=== PATIENT | male | born 1965 | race Caucasian/White ===

== ENCOUNTER 2018-07-27 08:17 | Inpatient (IN) | payer BC ==
[~2018-07-27] VITALS: Ht 177.8 cm; Wt 95.2 kg
[2018-07-27] MEDS ORDERED: ESOM20 PO (08:50)
[2018-07-27] MEDS ORDERED: CLON1 PO (08:50)
[2018-07-27] MEDS ORDERED: ESCI20 PO (08:50)
[2018-07-27] MEDS ORDERED: ZOLP10 PO (08:50)
[2018-07-27 08:57] LABS: BASOPHILS ABSOLUTE AUTO 0.03 K/mm3 (0.00-0.23); BASOPHILS PERCENT AUTO 0 % (0-2); EOSINOPHILS ABSOLUTE AUTO 0.02 K/mm3 (0.00-0.68); EOSINOPHILS PERCENT AUTO 0 % (0-6); Hematocrit 45.6 % (37.0-53.0); Hemoglobin 15.6 g/dL (13.5-17.5); IMMATURE GRAN ABSOLUTE AUTO 0.05 K/mm3 (0.00-0.10); IMMATURE GRAN PERCENT AUTO 0 % (0-1); LYMPHOCYTES ABSOLUTE AUTO 1.29 K/mm3 (0.84-5.20); LYMPHOCYTES PERCENT AUTO 11 % (21-46); MONOCYTES ABSOLUTE AUTO 1.03 K/mm3 (0.16-1.47); MONOCYTES PERCENT AUTO 9 % (4-13); Mean Corpuscular HGB 38.3 pg (26.0-34.0); Mean Corpuscular HGB Conc 34.2 g/dL (31.5-36.5); Mean Corpuscular Volume 112 fL (80-100); Mean Platelet Volume 8.8 fL (9.1-12.4); NEUTROPHILS ABSOLUTE AUTO 8.85 K/mm3 (1.96-9.15); NEUTROPHILS PERCENT AUTO 79 % (41-73); Platelet Count 291 K/mm3 (150-400); RDW Coefficient Variation 13.2 % (11.7-14.2); RDW Standard Deviation 54.9 fL (35.1-46.3); Red Blood Cell Count 4.07 M/mm3 (4.30-5.90); White Blood Cell Count 11.27 K/mm3 (4.00-11.30)
[2018-07-27 09:50] LABS: Alanine Aminotransfer (ALT/SGP 31 U/L (12-78); Albumin, Blood 3.3 g/dL (3.4-5.0); Albumin/Globulin Ratio 0.9 (0.8-1.8); Alk Phos 140 U/L (50-136); Anion Gap 5 mmol/L (6-16); Aspartate Aminotrans (AST/SGOT 16 U/L (12-37); Blood Urea Nitrogen 8 mg/dL (8-24); Bun/Creatinine Ratio 9.1 (12.0-20.0); CO2, Blood 28 mmol/L (21-32); Calcium, Blood 8.9 mg/dL (8.5-10.1); Chloride, Blood 110 mmol/L (98-108); Creatinine, Blood 0.88 mg/dL (0.60-1.20); Globulin, Blood 3.5 g/dL (2.2-4.0); Glomerular Filtration Rate >60 (60-); Glucose, Blood 98 mg/dL (70-99); Potassium, Blood 3.9 mmol/L (3.5-5.5); Sodium, Blood 143 mmol/L (136-145); Total Protein, Blood 6.8 g/dL (6.4-8.2); Troponin I <0.015 ng/mL (0.000-0.040)
--- NOTE | 2018-07-27 15:34 | NUR ---
PATIENT GOT UP TO USE THE RESTROOM, WHEN HE HAD MOVED HE SAT BACK DOWN AND CALLED FOR THE AID. THE AID CALLED FOR MYSELF AND WE GOT A SET OF VITALS. PATIENT COMPLAINED THAT HE COULD NOT BREATHE AND STATED THAT HIS CHEST HURT. GAVE THE PAIN RATING A 8/10 ON HIS RIGHT SIDED CHEST. PATIENT'S VITALS WERE PLACED IN THE COMPUTER WITH BP OF 123/73, PULSE OF 94, AND RESPIRATION RATE OF 32. CALLED DR. CEDENO AND EXPRESSED MY CONCERN WELL THE PATIENT'S CURRENT VITALS. SHE PLACED NEW ORDERS INCLUDING THE NEBULIZER TREATMENT AND REQUESTED THE PATIENT HAVE A DOSE OF KLONOPIN. PATIENT WAS ALSO GIVEN A DOSE OF TYLENOL RELATED TO HIS SPIKED TEMPERATURE FROM 96.9 TO 100.3. THE PATIENT WILL HAVE A SECOND SET OF VITALS DONE IN 15 MINUTES. SITTING WITH THE PATIENT. ASKED FOR THE DOCTOR TO ASSESS SHE STATED SHE WOULD BE WITH THE PATIENT WHEN AVAILABLE.
--- NOTE | 2018-07-27 16:15 | NUR ---
put another call out to dr. fuller about the patient's change of condition. patient does not look bad enough to call a rapid response, patient's breathing is starting to slow down but currently the patient is shaking and noting that he is cold. his temperature is coming down at this time post dose of tylenol.
--- NOTE | 2018-07-27 16:44 | NUR ---
shift summary patient in with the doctor at this time. he looks better currently than he did just moments ago when his temp spiked. he is no longer shaking and is able to hold a conversation.
--- NOTE | 2018-07-28 05:00 | NUR ---
SHIFT SUMMARY PT PAINFUL ON R RIBS/CHEST WHERE PT REPORTS, "THE BLOOD CLOT IS". PAIN WORSE WHEN TRYING TO LAY ON ONE SIDE OR THE OTHER. PT SLEPT FOR A SHORT PERIOD OF TIME BUT UPON WAKING AT APPROX 0200 PAIN MORE SEVERE. MEDICATED W/ 50 MCG FENTANYL, PT CONTINUED TO REPORT 7-8/[address] TEJADA WHO OKAY'D ONE TIME DOSE OF 1 MG IV DILAUDID. FOLLOWING PT APPEARED MUCH MORE COMFORTABLE AND WAS ABLE TO FALL ASLEEP AGAIN SHORTLY AFTER. PT DENIES ANY SOB. NO COUGHING NOTED. VSS. RESTING IN BED AT THIS TIME. WILL CONTINUE TO MONITOR AND REPORT TO DAY RN.
[2018-07-28 05:39] LABS: BASOPHILS ABSOLUTE AUTO 0.02 K/mm3 (0.00-0.23); BASOPHILS PERCENT AUTO 0 % (0-2); EOSINOPHILS ABSOLUTE AUTO 0.02 K/mm3 (0.00-0.68); EOSINOPHILS PERCENT AUTO 0 % (0-6); Hematocrit 39.4 % (37.0-53.0); Hemoglobin 13.3 g/dL (13.5-17.5); IMMATURE GRAN ABSOLUTE AUTO 0.05 K/mm3 (0.00-0.10); IMMATURE GRAN PERCENT AUTO 1 % (0-1); LYMPHOCYTES ABSOLUTE AUTO 1.13 K/mm3 (0.84-5.20); LYMPHOCYTES PERCENT AUTO 12 % (21-46); MONOCYTES ABSOLUTE AUTO 1.06 K/mm3 (0.16-1.47); MONOCYTES PERCENT AUTO 12 % (4-13); Mean Corpuscular HGB 37.9 pg (26.0-34.0); Mean Corpuscular HGB Conc 33.8 g/dL (31.5-36.5); Mean Corpuscular Volume 112 fL (80-100); NEUTROPHILS ABSOLUTE AUTO 6.93 K/mm3 (1.96-9.15); NEUTROPHILS PERCENT AUTO 75 % (41-73); Platelet Count 242 K/mm3 (150-400); RDW Coefficient Variation 13.1 % (11.7-14.2); RDW Standard Deviation 54.8 fL (35.1-46.3); Red Blood Cell Count 3.51 M/mm3 (4.30-5.90); White Blood Cell Count 9.21 K/mm3 (4.00-11.30)
[2018-07-28 06:01] LABS: Alanine Aminotransfer (ALT/SGP 27 U/L (12-78); Albumin, Blood 2.5 g/dL (3.4-5.0); Albumin/Globulin Ratio 0.8 (0.8-1.8); Alk Phos 107 U/L (50-136); Anion Gap 5 mmol/L (6-16); Aspartate Aminotrans (AST/SGOT 16 U/L (12-37); Bilirubin, Total 0.5 mg/dL (0.1-1.0); Blood Urea Nitrogen 13 mg/dL (8-24); Bun/Creatinine Ratio 15.5 (12.0-20.0); CO2, Blood 26 mmol/L (21-32); Calcium, Blood 8.2 mg/dL (8.5-10.1); Chloride, Blood 110 mmol/L (98-108); Creatinine, Blood 0.84 mg/dL (0.60-1.20); Globulin, Blood 3.1 g/dL (2.2-4.0); Glomerular Filtration Rate >60 (60-); Glucose, Blood 125 mg/dL (70-99); Potassium, Blood 3.9 mmol/L (3.5-5.5); Sodium, Blood 141 mmol/L (136-145); Total Protein, Blood 5.6 g/dL (6.4-8.2)
--- NOTE | 2018-07-28 16:41 | NUR ---
PATIENT DOING MUCH BETTER TODAY. PAIN WELL CONTROLLED WITH NORCO Q4 HOURS AND PATIENT IS ABLE TO USE FLUTTER VALVE APPROPRIATELY. 20G TO R AC NOW SL. TOLERATING CARDIAC DIET. UP INDEPENDENTLY IN ROOM AND IN HALLS. A/O X4 AND CALLS APPROPRIATELY FOR ASSISTANCE. XARELTO ORDERED TO TREAT PE. VSS THIS SHIFT. LUNGS CLEAR/DIM, ON RA. NO DYSPNEA ON EXERTION.
--- NOTE | 2018-07-29 04:48 | NUR ---
SHIFT SUMMARY PT DID WELL THIS EVENING. CONTINUES TO HAVE PAIN IN R LOWER CHEST/RIB AREA BUT PAIN IS WELL MANAGED WITH 1 TAB NORCO 5/325 Q 4 HOURS. DENIES ANY SOB. NO DIAPHORESIS. VITAL SIGNS STABLE. NO ACUTE CHANGES THIS SHIFT. WILL CONTINUE TO MONITOR AND REPORT TO DAY RN.
[2018-07-29] MEDS ORDERED: ACET500 PO (11:30)
[2018-07-29] MEDS ORDERED: Zithromax500 MG PO (11:31)
[2018-07-29] MEDS ORDERED: CEFU500T30 PO (11:32)
[2018-07-29] MEDS ORDERED: FOLI1 PO (11:32)
[2018-07-29] MEDS ORDERED: GUAI600T33 PO (11:33)
[2018-07-29] MEDS ORDERED: Norco 5-325 Ta1 EACH PO (11:34)
[2018-07-29] MEDS ORDERED: XARELTO15 MG PO (11:34)
--- NOTE | 2018-07-29 11:51 | NUR ---
PATIENT D/C'D TO HOME WITH . RX MEDICATIONS FAXED TO [facility] ON [address]. HARD SCRIPT FOR NORCO GIVEN TO PATIENT. D/C INSTRUCTIONS AND EDUCATION DISCUSSED WITH PATIENT AND COPY PROVIDED. PATIENT DENIES ANY FURTHER QUESTIONS OR CONCERNS.
== END 2018-07-29 11:56 | disposition home or self-care (01) | DRG 175 ==
LOC: ER 08:17 → MEDS 12:30 → ENPENDDIS 07-29 11:34 → MEDS 07-29 11:56
PROVIDERS: Emergency Medicine; ADMIT Internal Medicine
DX: I26.99 Other pulmonary embolism without acute cor pulmonale (principal); J18.1 Lobar pneumonia, unspecified organism; R91.1 Solitary pulmonary nodule; D53.9 Nutritional anemia, unspecified; E53.8 Deficiency of other specified B group vitamins; F41.9 Anxiety disorder, unspecified; K21.9 Gastro-esophageal reflux disease without esophagitis; F51.04 Psychophysiologic insomnia; K57.90 Diverticulosis of intestine, part unspecified, without perforation or abscess without bleeding; R10.32 Left lower quadrant pain
CPT/HCPCS: 36415; 71046; 71260; 74176; 76705; 80053; 82607; 82746; 83605; 83690; 83880; 84484; 85025; 85379; 87040; 93005; 93010; 94667; 94760; 96365-59; 96367; 96375-59; 99285-25; A9270; J0456; J0696; J1170; J1885; J3010; J7050; Q9967

== ENCOUNTER → 2019-04-17 | Outpatient (CLI) | payer BC ==
[~2019-04-17] MED LIST: ACET500 PO; CEFU500T30 PO; CLON1 PO; ESCI20 PO; ESOM20 PO; FOLI1 PO; GUAI600T33 PO; Norco 5-325 Ta1 EACH PO; XARELTO15 MG PO; ZOLP10 PO; Zithromax500 MG PO
== END ==
LOC: LAB SHORT 15:06 → PLD 15:06
DX: D48.5 Neoplasm of uncertain behavior of skin (principal)
CPT/HCPCS: 88305

== ENCOUNTER → 2019-10-21 | Outpatient (CLI) | payer BC | END | disposition home or self-care (01) | LOC: PLD 14:49 → LAB SHORT 14:49 | DX: D48.5 Neoplasm of uncertain behavior of skin (principal) | CPT/HCPCS: 88305 ==

== ENCOUNTER → 2023-01-10 | Outpatient (CLI) | payer BC | LOC: LAB 11:50 → LAB SHORT 11:50 | DX: L85.8 Other specified epidermal thickening (principal) | CPT/HCPCS: 88305 ==